=== PATIENT | female | born 1995 | race Caucasian/White ===

== ENCOUNTER 2023-10-28 17:56 | Emergency (ER) | payer OTHER ==
[~2023-10-28] VITALS: Ht 172.7 cm; Wt 108.9 kg
[2023-10-28 18:32] VITALS: BP 150/99; PULSE 82; RESP 18; TEMP 97.8; O2SAT 100
[2023-10-28 19:36] VITALS: RESP 17; TEMP 98.1
[2023-10-28] MEDS: KETOROLAC 60 MG/2 ML VIAL IM ONE (20:45)
[2023-10-28 21:43] VITALS: BP 133/91; PULSE 76; O2SAT 97
== END 2023-10-28 21:45 | disposition home or self-care (01) ==
LOC: MED 17:56
DX: R10.9 Unspecified abdominal pain (principal); Z79.899 Other long term (current) drug therapy
CPT/HCPCS: 81002; 81025; 96372; 99283; J1885

== ENCOUNTER 2023-11-23 00:15 | Emergency (ER) | payer OTHER ==
[~2023-11-23] VITALS: Ht 172.7 cm; Wt 104.3 kg
[2023-11-23 00:21] VITALS: BP 148/87; PULSE 78; RESP 20; TEMP 98; O2SAT 98
[2023-11-23 00:28] VITALS: TEMP 98
[2023-11-23] MEDS: NACL 0.9% 1,000 ML IV ONE (02:53)
[2023-11-23] MEDS: METOCLOPRAMIDE 10 MG/2 ML INJ VIAL IVP ONE (03:00)
[2023-11-23] MEDS: KETOROLAC 30 MG/ML VIAL IVP ONE (03:03)
[2023-11-23] MEDS: diphenhydrAMINE 50 MG/ML VIAL IVP ONE (03:05)
[2023-11-23 03:42] LABS: APPEARANCE,URINE CLEAR (CLEAR); BILIRUBIN,URINE NEGATIVE (NEGATIVE); BLOOD, URINE NEGATIVE (NEGATIVE); COLOR,URINE YELLOW (YELLOW); LEUKOCYTE ESTERASE ,URINE NEGATIVE (NEGATIVE); NITRITE, URINE NEGATIVE (NEGATIVE); PROTEIN,URINE NEGATIVE (NEGATIVE); UGLUCOSE NEGATIVE (NEGATIVE); UROBILINOGEN,URINE 0.2 EU/dL (0.2 - 1)
[2023-11-23 05:21] VITALS: BP 115/73; PULSE 77; RESP 16; O2SAT 96
[2023-11-23 05:30] LABS: AMPHETAMINE, URINE NEGATIVE ng/ml (NEG <=1000); BARBITURATE, URINE NEGATIVE ng/ml (NEG <=200); BENZODIAZEPINE, URINE NEGATIVE ng/mL (NEG <=200); CANNABINOID, URINE NEGATIVE ng/mL (NEG <=50); COCAINE, URINE NEGATIVE ng/mL (NEG <=300); OPIATE, URINE NEGATIVE ng/mL (NEG <=2000); PHENCYCLIDINE SCREEN,URINE NEGATIVE ng/mL (NEG <=25)
[2023-11-23] MEDS ORDERED: NAPR-337 PO (05:56)
== END 2023-11-23 05:45 | disposition home or self-care (01) ==
LOC: MED 00:15
DX: G44.209 Tension-type headache, unspecified, not intractable (principal); Z79.899 Other long term (current) drug therapy
CPT/HCPCS: 70450; 80305; 81003; 81025; 96361; 96374; 96375; 99285; J1200; J1885; J2765; J7030